=== PATIENT | female | born 1935 | race Caucasian/White ===

== ENCOUNTER → 2017-11-03 | Outpatient (CLI) | payer MEDICARE, OTHER ==
[~2017-11-03] MED LIST: ANTIVERT25 MG PO; APAP500 PO; ARTIFICIAL TEAR15 M1 OPHTHALMIC; ASPIR 8181 MG PO; ASPIRIN325 PO; ASPIRIN81 M2 PO; ATORVASTATIN CA40 MG PO; AZITHROMYCIN 2250 MG PO; AZOPT OPHTH1 %/10 M1 OP; BENADRYL ALLERG25 MG PO; BRIMONIDINE TAR1 BO1 OP; CALCIUM + VIT1 EACH; CHERATUSSIN DA480 ML; CIPRO250 M1 PO; CIPROFLOXACIN1 EACH OT; COLACE100 MG PO; COMBIGAN EYE DR10 ML OP; COZAAR 50 MG TA50 M2 PO; DOXYCYCLINE HYC50 MG PO; ENOXAPARIN40 MG/0.1 SUBQ; ERYTHROMYCIN250 MG PO; ETODOLAC500 MG PO; FISH OIL 1,0001 EAC8; FLAX OIL1000 MG PO; FLOMAX0.4 MG PO; GLUCOSAMINE HC500 MG; HEMP OIL; HERB LAX PO; KLOR-CON 1010 MEQ PO; LASIX 20 MG TAB20 MG PO; LEVAQUIN 500 M500 M1 PO; LEVAQUIN 500 M500 M2 PO; LIPITOR 20 MG T20 M1 PO; LISINOPRIL2.5 MG; LOPRESSOR25 PO; LOPRESSOR50; LOPRESSOR50 PO; MIRALAX17 GM PO; MIRALAX255 GM PO; MOBIC15 MG PO; MOM PO; MUCINEX TA600 MG/TA2 PO; NAPROSYN500 MG PO; NITROGLYCERIN0.4 MG SL; ORAPRED ODT15 MG PO; OSELB75 PO; OXYBUTYNIN 5 MG5 M2 PO; PAXIL10 MG PO; PRED FORTE 1% EY5 M1 OP; PRED-FORTE OPHTH1 M1 OP; PREDNISOLON5 MG/5 ML INTRAOCULR; PREDNISOLONE; PREDNISONE 20 M20 M1 PO; PREDNISONE 5 MG5 MG PO; PROTONIX40 M1 PO; RESTORIL15 MG PO; SIMVASTATIN40 MG PO; STOOL SOFTNER; TESSALON PERLE100 MG PO; TIMOPTIC 0.25%1 EACH OPHTHALMIC; TOPROL XL25 MG PO; TRAVATAN Z2.5 ML OPHTHALMIC; TRIMETHOPRIM /P10 M1 OP; TRUSOPT5 ML OP; ULTRAM 50MG TAB50 MG PO; VENTOLIN HFA 1818 GM INH; VITAMINC500 PO; XALATAN2.5 ML OPHTHALMIC; XARELTO15 MG PO; ZESTRIL5 MG PO; ZOCOR40 MG PO; ZOFRAN ODT4 MG PO; ZPAK PO; [UNRECOGNIZED DRUG - OTHER] OPHTHALMIC; [UNRECOGNIZED DRUG - OTHER] PO; [UNRECOGNIZED DRUG - OTHER] PO
== END ==
LOC: M.RAD 12:58
DX: R05 Cough (principal); R06.00 Dyspnea, unspecified; M19.012 Primary osteoarthritis, left shoulder; M19.011 Primary osteoarthritis, right shoulder

== ENCOUNTER → 2017-11-28 | Outpatient (CLI) | payer MEDICARE, OTHER | LOC: M.RAD 11:44 | DX: I51.7 Cardiomegaly (principal); J18.9 Pneumonia, unspecified organism ==

== ENCOUNTER → 2017-12-08 | Outpatient (CLI) | payer MEDICARE, OTHER | LOC: M.RAD 13:10 | DX: Z12.31 Encounter for screening mammogram for malignant neoplasm of breast (principal) ==

== ENCOUNTER → 2017-12-22 | Outpatient (CLI) | payer MEDICARE, OTHER ==
[2017-12-22 10:56] LABS: CHOLESTEROL 197 mg/dL (<200); HDL CHOLESTEROL 35 mg/dL (>40); LDL CHOLESTEROL 110 mg/dL (<100); SERUM ASSESSMENT Clear; TC:HDL 5.6 Ratio (Not establshd); TRIGLYCERIDE 261 mg/dL (<150); VLDL 52 mg/dL (<40)
== END ==
LOC: M.LAB 10:21
PROVIDERS: Internal Medicine Cardiovascular Disease
DX: E78.00 Pure hypercholesterolemia, unspecified (principal)

== ENCOUNTER → 2017-12-27 | Outpatient (CLI) | payer MEDICARE, OTHER ==
--- NOTE | 2017-12-27 20:08 | CARDNUC ---
[place] [address] CARDIAC NUCLEAR IMAGING REPORT Name: CECE KIM Room: [facility]#: [id number] Admission: 12/27/17 Attend Phys: Ethan Banks, Discharge: Date of : 37 Date of Service: 12/27/172006 Report #: [id number] THIS REPORT FOR: //name// APPROVED REPORT Study performed: 12/27/2017 07:45:00 Exam: Nuclear Stress Test Indication: CAD , Pre-Operative CV evaluation Patient Location: Out-Patient Stress Tech: Marcelina Hill Stress Nurse: Lala Aviles RN NM Tech:ARTURO Samaniego Ht: 5 ft 3 in Wt: 174 lbs BSA: 1.82 m2 BMI: 30.81 Medical History Medical History: CAD s/p CABG, HTN Medications: metoprolol, asa, losartan Allergies: silvio inhibitor, hydrocodone, levofloxacin Cardiac Risk Factors: Age, HTN Previous Cardiac Procedures: CABG Meds Held (24 hrs): metoprolol Stress Test Details Stress Test: Pharmacologic stress testing performed using 0.4 mg of regadenoson per 5 mL given IV over 10 seconds. Reason for pharmacologic stress test: physical limitation. HR Resting HR: 63 bpm Max Heart Rate (APMHR): 139 bpm Max HR Achieved: 86 bpm Target HR (85% APMHR): 118 bpm % of APMHR: 61 Recovery HR: 88 bpm BP Resting BP: 150/91 mmHg Max BP: 114/69 mmHg ECG Resting ECG: Sinus Rhythm, normal EKG Stress ECG: Sinus Rhythm, normal EKG ST Change: None Arrhythmia: [place] [address] CARDIAC NUCLEAR IMAGING REPORT Name: ALICJA KIMYCHerbie Williamson Room: [facility]#: [id number] Admission: 12/27/17 Attend Phys: Ethan Banks, Discharge: Date of : 37 Date of Service: 12/27/172006 Report #: [id number] Recovery ECG: Sinus Rhythm, normal EKG Recovery ST Change: None Recovery Arrhythmia: None Clinical Reason for Termination: Completed protocol Stress Symptoms: None Exercise duration: 0 min sec Exercise capacity: 1.0 METs The patient had no significant symptoms with Lexiscan infusion. Stress ECG Conclusion The baseline 12-lead electrocardiogram showed sinus rhythm without significant ST or T wave abnormality. EKGs obtained during and post Lexiscan infusion show sinus rhythm with no significant ST or T wave changes when compared to baseline. There were no stress-induced arrhythmias. NM EXAM: Myocardial Perfusion REST/STRESS Imaging Protocol: Rest Tc-99m/Stress Tc-99m 1 day Resting Data Rest SPECT myocardial perfusion imaging was performed in supine position 30 minutes following the intravenous injection of 11.0 mCi of Tc-99m Sestamibi. Time of rest injection: 0815 Time of rest imagin The images were gated to evaluate regional wall motion and calculate left ventricular ejection fraction. Administration Route: IV Pharmacologic Stress Pharmacologic stress test was performed by injecting Regadenoson 0.4 mg IV push followed by the intravenous injection of 35.6 mCi of Tc-99m Sestamibi. Time of stress injection: 0945 Time of stress imagin Administration Route: IV Gated Stress SPECT was performed 40 minutes after stress injection. The images were gated to evaluate regional wall motion and calculate left ventricular ejection fraction. Prone imaging was [place] [address] CARDIAC NUCLEAR IMAGING REPORT Name: CECE KIM Room: [facility]#: [id number] Admission: 12/27/17 Attend Phys: Ethan Banks, Discharge: Date of : 37 Date of Service: 12/27/172006 Report #: [id number] Study: Good Artifact: No artifact Study Data At rest, the left ventricular ejection fraction was 63%.. Post stress, the left ventricular ejection was 71%.. TID = 0.95. Perfusion Normal left ventricular perfusion. Wall Motion Global LV systolic function is normal. There is a septal wall motion abnormality noted consistent with prior bypass procedure. Nuclear Conclusion ECG Findings: negative for ischemia Clinical Findings: negative for ischemia Nuclear Findings: negative for ischemia Exercise Capacity: not assessed Left Ventricular Function: normal Risk Study: low Myocardial perfusion images show no defect to suggest infarct or ischemia. Left ventricular systolic function is normal. There is a septal wall motion abnormality consistent with prior bypass procedure. This is a low risk study. <Conclusion> The baseline 12-lead electrocardiogram showed sinus rhythm without significant ST or T wave abnormality. EKGs obtained during and post Lexiscan infusion show sinus rhythm with no significant ST or T wave changes when compared to baseline. There were no stress-induced arrhythmias. <ELECTRONICALLY SIGNED> By: Naun Reyes MD, FACC 12/27/172006 06 06 Naun Reyes MD, FACC /INF
== END ==
LOC: M.NUC 07:38
DX: Z01.818 Encounter for other preprocedural examination (principal); I25.10 Atherosclerotic heart disease of native coronary artery without angina pectoris; I10 Essential (primary) hypertension; Z95.1 Presence of aortocoronary bypass graft

== ENCOUNTER → 2018-01-25 | Outpatient (CLI) | payer MEDICARE, OTHER | LOC: M.MRI 10:44 | DX: S43.401A Unspecified sprain of right shoulder joint, initial encounter (principal); M19.011 Primary osteoarthritis, right shoulder; Z91.81 History of falling; X58.XXXA Exposure to other specified factors, initial encounter; Y93.89 Activity, other specified; Y92.89 Other specified places as the place of occurrence of the external cause; Y99.8 Other external cause status ==

== ENCOUNTER 2018-07-21 09:18 | Inpatient (IN) | payer MEDICARE, OTHER ==
[~2018-07-21] VITALS: Ht 152.4 cm; Wt 75.3 kg
[~2018-07-21 09:18] MED LIST changes: -ARTIFICIAL TEAR15 M1 OPHTHALMIC; -LOPRESSOR25 PO; -MIRALAX17 GM PO; -OXYBUTYNIN 5 MG5 M2 PO; -XARELTO15 MG PO
[2018-07-21 10:03] LABS: ABSOLUTE EOSINOPHILS 0.2 thou/uL (0.0-0.7); ABSOLUTE LYMPHOCYTES 1.8 thou/uL (0.8-5.3); ABSOLUTE MONOCYTES 0.3 thou/uL (0.0-1.2); ABSOLUTE NEUTROPHILS 3.6 thou/uL (1.6-8.1); BASOPHILS 0.5 %; HEMATOCRIT 42.9 % (37.0-47.0); HEMOGLOBIN 14.7 gm/dL (12.0-15.0); LYMPHOCYTES 30.1 %; MCH 33.4 pg (26.0-34.0); MCHC 34.2 g/dL (28.0-37.0); MCV 97.7 fL (80.0-100.0); MONOCYTES 5.8 %; MPV 9.1 fl. (7.2-11.1); NUCLEATED RBCS 0 /100WBC; PLATELET COUNT* 196 thou/uL (150-400); POLYS 60.6 %; RBC 4.39 mil/uL (4.20-5.00); RDW-CV 13.3 % (10.5-14.5); WBC 5.9 thou/uL (4.0-11.0)
[2018-07-21 10:12] LABS: ANION GAP 5 mmol/L (7-16); BUN 19 mg/dL (7-18); CALCIUM 9.4 mg/dL (8.5-10.1); CHLORIDE 105 mmol/L (98-107); CO2 27 mmol/L (21-32); CREATININE 0.8 mg/dL (0.6-1.3); GLUCOSE 132 mg/dL (70-99); POTASSIUM 4.1 mmol/L (3.5-5.1); SODIUM 137 mmol/L (136-145)
[2018-07-21 10:23] LABS: ALKALINE PHOSPHATASE 125 U/L (46-116); LIPASE 85 U/L (73-393); MAGNESIUM 2.1 mg/dL (1.8-2.4); NT-PRO BRAIN NAT PEPTIDE 307 pg/mL (<300); SGOT 23 U/L (15-37); SGPT 44 U/L (30-65); TOTAL BILIRUBIN 0.7 mg/dL (<0.1-1.0); TOTAL PROTEIN 7.7 g/dL (6.4-8.2); TROPONIN-I LEVEL <0.06 ng/mL (<0.06)
[2018-07-21 11:54] LABS: APTT 25.9 Seconds (25.0-31.3); PROTIME 10.4 Seconds (9.20-11.50)
[2018-07-21 14:02] VITALS: BP 124/76
[2018-07-21 14:04] VITALS: BP 164/77
--- NOTE | 2018-07-21 14:08 | EKG ---
[place] [address] ELECTROCARDIOGRAM REPORT Name: CECE KIM Room: [address] IN M.R.#: [id number] Admission: 07/21/18 Attend Phys: Alfredo Bo, Discharge: Date of : 37 Report #: [id number] THIS REPORT FOR: //name// [facility] ED Test Date: 2018-07-21 Test Time: 09:24:08 Pat Name: CECE KIM Department: Room: [facility] Gender: F Patent Attorney: SRINIVASA : 1935 Requested By: Vel Villarreal Order Number: [id number] MD: Darren Moore Measurements Intervals [place] Rate: 61 P: 7 NV: 202 QRS: -26 QRSD: 84 T: 161 QT: 391 QTc: 394 Interpretive Statements Sinus rhythm Abnormal R-wave progression, late transition LVH with secondary repolarization abnormality consider Inferior infarct, old Baseline wander in lead(s) I,aVR Compared to ECG 07/04/2016 13:10:55 Prolonged QT interval no longer present Electronically Signed On 07-21-2018 14:08:32 CDT by Darren Moore [email or web address] <ELECTRONICALLY SIGNED> By: Darren Moore MD, FACC 07/21/18 1408 0924 Darren Moore MD, FACC /EPI
--- NOTE | 2018-07-21 14:12 | EKG ---
[place] [address] ELECTROCARDIOGRAM REPORT Name: CECE KIM Room: [address] ADM IN M.R.#: [id number] Admission: 07/21/18 Attend Phys: Alfredo Bo, Discharge: Date of : 37 Report #: [id number] THIS REPORT FOR: //name// [facility] ED Test Date: 2018-07-21 Test Time: 11:38:07 Pat Name: CECE KIM Department: Room: [facility] Gender: F Gas Fitter Helper: TRISTAN : 1935 Requested By: Vel Villarreal Order Number: [id number] MD: Darren Moore Measurements Intervals [place] Rate: 61 P: 22 [place]: 201 QRS: -22 QRSD: 95 T: 98 QT: 478 QTc: 482 Interpretive Statements Sinus rhythm LVH with secondary repolarization abnormality Baseline wander in lead(s) V5 Electronically Signed On 07-21-2018 14:11:54 CDT by Darren Moore [email or web address] <ELECTRONICALLY SIGNED> By: Darren Moore MD, [facility] 07/21/18 1411 1138 1138 Darren Moore MD, FAC /EPI
[2018-07-21] MEDS ORDERED: MIRALAX17 GM PO (14:52)
[2018-07-21] MEDS ORDERED: LOPRESSOR25 PO (14:55)
[2018-07-21] MEDS ORDERED: OXYBUTYNIN 5 MG5 M2 PO (14:56)
[2018-07-21] MEDS ORDERED: PAXIL10 MG PO (14:56)
[2018-07-21] MEDS ORDERED: ARTIFICIAL TEAR15 M1 OPHTHALMIC (14:57)
[2018-07-21 15:34] VITALS: BP 110/61
[2018-07-21 20:00] VITALS: BP 133/70
[2018-07-22] VITALS (7 sets, daily range): BP systolic 97–141; BP diastolic 48–74
[2018-07-22 05:12] LABS: HEMATOCRIT 39.8 % (37.0-47.0); HEMOGLOBIN 13.7 gm/dL (12.0-15.0); MCH 33.9 pg (26.0-34.0); MCHC 34.4 g/dL (28.0-37.0); MCV 98.5 fL (80.0-100.0); MPV 9.4 fl. (7.2-11.1); RBC 4.04 mil/uL (4.20-5.00); RDW-CV 13.3 % (10.5-14.5); WBC 6.3 thou/uL (4.0-11.0)
[2018-07-22 05:32] LABS: ALBUMIN 3.4 g/dL (3.4-5.0); CALCIUM 9.1 mg/dL (8.5-10.1); CREATININE 0.7 mg/dL (0.6-1.3); MAGNESIUM 2.2 mg/dL (1.8-2.4); POTASSIUM 4.2 mmol/L (3.5-5.1); TOTAL BILIRUBIN 0.6 mg/dL (<0.1-1.0); TOTAL PROTEIN 6.3 g/dL (6.4-8.2)
[2018-07-23] VITALS: BP 117/55
[2018-07-23 04:00] VITALS: BP 107/54
[2018-07-23 04:42] LABS: HEMATOCRIT 39.4 % (37.0-47.0); HEMOGLOBIN 13.5 gm/dL (12.0-15.0); MCH 33.5 pg (26.0-34.0); MCHC 34.2 g/dL (28.0-37.0); MCV 98.1 fL (80.0-100.0); MPV 9.2 fl. (7.2-11.1); RBC 4.02 mil/uL (4.20-5.00); RDW-CV 13.3 % (10.5-14.5); WBC 5.7 thou/uL (4.0-11.0)
[2018-07-23 05:13] LABS: ALBUMIN 3.2 g/dL (3.4-5.0); CALCIUM 8.8 mg/dL (8.5-10.1); CREATININE 0.8 mg/dL (0.6-1.3); MAGNESIUM 2.1 mg/dL (1.8-2.4); POTASSIUM 4.3 mmol/L (3.5-5.1); TOTAL BILIRUBIN 0.5 mg/dL (<0.1-1.0); TOTAL PROTEIN 6.1 g/dL (6.4-8.2)
--- NOTE | 2018-07-23 11:30 | CON ---
[address] [address] CONSULTATION Name: JULIOCECE F Room: [address] IN .R.#: [id number] Admission: 07/21/18 Attend Phys: Alfredo Bo, Discharge: Date of : 37 Report #: [id number] THIS REPORT FOR: //name// CC: Darren Bo DATE OF SERVICE: 07/22/2018 REQUESTING PHYSICIAN: Dr. Bo. REASON FOR CONSULTATION: Pulmonary embolism. DISCUSSION: The patient is a nonsmoking 83-year-old woman who was admitted after being evaluated in the Emergency Department yesterday. She had developed significant chest pain, which was worse with movement and breathing several days prior to presentation. She had contacted Dr. Pascual. He had recommended she be seen in the Emergency Department. However, she had put that off. There was concern she could have a "blood clot." The pain worsened. She was then seen subsequently in the Emergency Department. She was evaluated there. She did have a CT angiogram done of her chest with a PE protocol that revealed a thrombus in the right pulmonary artery. Had some chronic scarring in the bases noted. She was started on anticoagulation therapy. She is now on the floor. She is still on O2 at 2 liters per nasal cannula. Subjectively, she is feeling somewhat better, though still having some shortness of breath and pleuritic pain. She has no prior history of known thromboembolic disease. She had stopped her aspirin several days prior to this in anticipation of Orthopedic Surgery next week. She is quite sedentary. She is legally blind. She notes she actually spends much of the day in bed. She does have caregivers that come by to help with her and her 5 days a week. She does not get any kind of regular exercise. She does note that several days prior to this acute event, her caregiver had noted an area of swelling in her left calf. Apparently, was not warm or tender. It subsequently dissipated on its own. She was initially started on high dose Lovenox. She has been changed over to Xarelto 15 mg twice a day, which was started today. She is somewhat concerned in regards to her medications that will be used due to the cost. Her is on warfarin, so she is somewhat familiar with the anticoagulants. 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 PAST MEDICAL HISTORY: Remarkable for the legal blindness due to glaucoma. No history of thromboembolic disease. [place] [address] CONSULTATION Name: CECE KIM Room: [address]#: [id number] Admission: 07/21/18 Attend Phys: Alfredo Bo, Discharge: Date of : 37 Report #: [id number] coronary artery disease. Has had [place]. She underwent coronary artery bypass grafting surgery in 2013. She has also had ureteral stones removed, polymyalgia rheumatica, hypertension, had right knee arthroscopic surgery, she has chronic back pain. HOME MEDICATIONS: P.r.n. nitroglycerin, various eyedrops, simvastatin, losartan, docusate, ascorbic acid, Flomax, p.r.n. tramadol. 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 Had worked at [employer] in [facility]. She is . Her is in his late 90s. They do have help at home 5 days a week. When she was working as an RN, her TB skin tests were all negative. REVIEW OF SYSTEMS: ROS was done. No positives as above. She has not noted any swelling in her legs or pain in her legs other than what was noted above under HPI. She has had a chronic cough over the last 3-4 years. She is not aware of anything which may have precipitated or helped it. Typically, no sputum is produced. She typically does not feel short of breath. She does have indigestion and heartburn. PPI has been recommended; however, she opts not to take any medication regularly unless she has to. She has no difficulty swallowing. She is not aware of any fevers at home. She did have some nausea and vomiting earlier this morning. Typically, has not had any issues. She has had shoulder discomfort and was scheduled to have actually shoulder surgery in early July. PHYSICAL EXAMINATION: GENERAL APPEARANCE: The patient is a woman who looks stated age. She is alert, cooperative. Has O2 running via nasal cannula. When we do move her around, she does look uncomfortable, but no acute distress. HEENT: Head is normocephalic. Sclerae are nonicteric. Mucous membranes are moist. NECK: Negative for adenopathy. No JVD is noted. HEART: Regular rate. No S3 is heard. LUNGS: Sounds appear clear. However, she is doing some splinting. No pleural rub is heard. ABDOMEN: Soft, without appreciable hepatosplenomegaly. No guarding or rebound tenderness. Arthritic changes of her hands, but no clubbing. EXTREMITIES: Lower extremities are negative for any significant edema. No calf tenderness. Just a few faint varicosities are noted. SKIN: Warm and dry. NEUROLOGIC: She is alert and oriented x 3. LABORATORY AND X-RAY FINDINGS: Venous Dopplers were negative for DVT. Pulmonary embolism was noted in the right main pulmonary artery. She has some atelectatic changes seen or infiltrate in both lung bases bilaterally. No pleural effusions. On her chemistry profile, BUN is 20, creatinine 0.7, [facility] [address] [place] [address] CONSULTATION Name: CECE KIM Room: [address] IN [facility].#: [id number] Admission: 07/21/18 Attend Phys: Alfredo Bo, Discharge: Date of : 37 Report #: [id number] potassium is 4.2. D-dimer was elevated. Baseline Coag studies were unremarkable. White blood cell count 6300, hemoglobin 13.7, hematocrit of 29.8, platelets are normal. IMPRESSION: 1. Pulmonary embolism, most likely from deep vein thrombosis. Though, Dopplers were negative, she does note earlier in the week there was an area of swelling in her left leg, which has since resolved. Risk factors include she is extremely sedentary. Unfortunately, this also preclude her from having shoulder surgery the first part of July as originally scheduled. 2. History of coronary artery disease. 3. Chronic cough. It is possible she could have some underlying obstructive lung disease such as asthma. Also, suspect it could be related to gastroesophageal reflux disease. She has not been interested in taking a PPI on a regular basis. 4. Legal blindness secondary to glaucoma. 5. Mild anemia. RECOMMENDATIONS: 1. Agree with anticoagulation therapy. She currently is on Xarelto. Hopefully, this would be a viable option for her. She is concerned in regards to the cost. Case management is assisting with that. 2. Also, continue to monitor carefully. Given her blindness, I was concerned about the possibility of falls, risk for bleeding. 3. Anticipate, she will need a minimum of 3-6 months of anticoagulation therapy and reevaluate at that time in regards to ongoing risks. Would hate to commit an elderly woman to lifelong anticoagulation therapy. <ELECTRONICALLY SIGNED> By: Kat Guerra MD 07/23/18 1130 1408 [id number] Guerra MD /nt
[2018-07-23 11:47] VITALS: BP 94/53
[2018-07-23 15:37] VITALS: BP 100/52
[2018-07-23 20:00] VITALS: BP 135/70
[2018-07-23 23:54] VITALS: BP 123/59
[2018-07-24 04:12] VITALS: BP 135/67
[2018-07-24 08:00] VITALS: BP 146/79
[2018-07-24] MEDS ORDERED: XARELTO15 MG PO (11:30)
[2018-07-24 12:00] VITALS: BP 128/60
--- NOTE | 2018-07-24 13:24 | 2DMMODE ---
[place] [address] 2 D/M-MODE ECHOCARDIOGRAM Name: CECE KIM Room: [address] IN [facility]#: [id number] Admission: 07/21/18 Attend Phys: Alfredo Grimm Discharge: Date of : 37 Date of Service: 07/24/18 1323 Report #: [id number] THIS REPORT FOR: //name// APPROVED REPORT Study performed: 07/24/2018 11:17:15 EXAM: Comprehensive 2D, Doppler, and color-flow Echocardiogram Patient Location: In-Patient Room #: [facility] Status: routine BSA: 1.79 HR: 55 bpm BP: 135/67 mmHg Rhythm: NSR Other Information Study Quality: Good Indications Pulmonary Embolism 2D Dimensions IVSd: 11.40 (7-11mm) LVOT Diam: 19.40 (18-24mm) LVDd: 48.57 mm PWd: 8.35 (7-11mm) Ascending Ao: 33.93 (22-36mm) LVDs: 28.08 (25-40mm) Aortic Root: 30.81 mm Volumes Left Atrial Volume (Systole) LA ESV Index: 22.80 mL/m2 Aortic Valve AoV Peak Ton.: 0.95 m/s AO Peak Gr.: 3.57 mmHg LVOT Max P.48 mmHg AO Mean Gr.: 2.10 mmHg LVOT Mean P.22 mmHg LVOT Max V: 0.79 m/s AO V2 VTI: 21.10 cm LVOT Mean V: 0.51 m/s ANNALISA (VTI): 2.47 cm2 LVOT V1 VTI: 17.62 cm Mitral Valve E/A Ratio: 0.74 MV Decel. Time: 277.64 ms MV E Max Ton.: 0.54 m/[place] [address] 2 D/M-MODE ECHOCARDIOGRAM Name: CECE KIM Room: [address] IN ..#: [id number] Admission: 07/21/18 Attend Phys: Alfredo Grimm Discharge: Date of : 37 Date of Service: 07/24/18 1323 Report #: [id number] MV PHT: 80.52 ms MVA (PHT): 2.73 cm2 TDI E/Lateral E': 6.75 E/Medial E': 9.00 Medial E' Ton.: 0.06 m/s Lateral E' Ton.: 0.08 m/s Pulmonary Valve PV Peak Ton.: 0.65 m/s PV Peak Gr.: 1.70 mmHg Tricuspid Valve RAP Estimate: 5.00 mmHg TR Peak Gr.: 27.22 mmHg RVSP: 32.00 mmHg PA Pressure: 32.00 mmHg Left Ventricle The left ventricle is normal size. There is normal LV segmental wall motion. There is normal left ventricular wall thickness. Left ventricular systolic function is normal. The left ventricular ejection fraction is within the normal range. LVEF is 55-60%. Grade I - abnormal relaxation pattern. Right Ventricle The right ventricle is normal size. The right ventricular systolic function is normal. Atria The left atrium size is normal. The right atrium size is normal. Aortic Valve Mild aortic valve sclerosis. Trace aortic regurgitation. There is no aortic valvular stenosis. Mitral Valve The mitral valve is normal in structure. Trace mitral regurgitation. No evidence of mitral valve stenosis. Tricuspid Valve The tricuspid valve is normal in structure. Moderate tricuspid regurgitation. Mild pulmonary hypertension. Pulmonic Valve The pulmonary valve is normal in structure. Mild pulmonic [place] [address] 2 D/M-MODE ECHOCARDIOGRAM Name: ECCE KIM Room: [address]#: [id number] Admission: 07/21/18 Attend Phys: Alfredo Grimm Discharge: Date of : 37 Date of Service: 07/24/18 1323 Report #: [id number] Great Vessels The aortic root is normal in size. IVC is normal in size and collapses >50% with inspiration. Pericardium There is no pericardial effusion. <Conclusion> The left ventricle is normal size. There is normal left ventricular wall thickness. Left ventricular systolic function is normal. The left ventricular ejection fraction is within the normal range. LVEF is 55-60%. Grade I - abnormal relaxation pattern. The right ventricle is normal size. The left atrium size is normal. Mild aortic valve sclerosis. There is no aortic valvular stenosis. Trace aortic regurgitation. The mitral valve is normal in structure. The tricuspid valve is normal in structure. IVC is normal in size and collapses >50% with inspiration. There is no pericardial effusion. There is normal LV segmental wall motion. <ELECTRONICALLY SIGNED> By: Yovany Cullen MD, FACC 07/24/18 1323 22 22 Yovany Cullen MD, FACC /INF
== END 2018-07-24 15:06 | disposition home or self-care (01) | DRG 176 ==
LOC: M.ERS 09:18 → M.TBA-ER 11:43 → M.2W 11:43
PROVIDERS: Emergency Medicine Emergency Medical Services; ADMIT Family Medicine
DX: I26.99 Other pulmonary embolism without acute cor pulmonale (principal); J98.11 Atelectasis; I10 Essential (primary) hypertension; H54.8 Legal blindness, as defined in USA; G89.29 Other chronic pain; M54.9 Dorsalgia, unspecified; I25.10 Atherosclerotic heart disease of native coronary artery without angina pectoris; D64.9 Anemia, unspecified; H40.9 Unspecified glaucoma; Z98.42 Cataract extraction status, left eye; Z98.41 Cataract extraction status, right eye; Z95.1 Presence of aortocoronary bypass graft; Z87.442 Personal history of urinary calculi; Z88.6 Allergy status to analgesic agent; Z79.01 Long term (current) use of anticoagulants; Z82.49 Family history of ischemic heart disease and other diseases of the circulatory system; Z83.49 Family history of other endocrine, nutritional and metabolic diseases; Z79.82 Long term (current) use of aspirin; Z79.899 Other long term (current) drug therapy

== ENCOUNTER 2018-08-04 11:39 | Emergency (ER) | payer MEDICARE, OTHER ==
[~2018-08-04] VITALS: Ht 160 cm; Wt 76.2 kg
[~2018-08-04 11:39] MED LIST changes: +ARTIFICIAL TEAR15 M1 OPHTHALMIC; +LOPRESSOR25 PO; +MIRALAX17 GM PO; +OXYBUTYNIN 5 MG5 M2 PO; +XARELTO15 MG PO
[2018-08-04 12:10] LABS: ABSOLUTE EOSINOPHILS 0.1 thou/uL (0.0-0.7); ABSOLUTE LYMPHOCYTES 2.2 thou/uL (0.8-5.3); ABSOLUTE MONOCYTES 0.4 thou/uL (0.0-1.2); ABSOLUTE NEUTROPHILS 2.9 thou/uL (1.6-8.1); BASOPHILS 0.8 %; EOSINOPHILS 2.2 %; HEMATOCRIT 42.3 % (37.0-47.0); HEMOGLOBIN 14.2 gm/dL (12.0-15.0); LYMPHOCYTES 38.6 %; MCH 32.9 pg (26.0-34.0); MCHC 33.6 g/dL (28.0-37.0); MCV 97.9 fL (80.0-100.0); MONOCYTES 7.4 %; MPV 8.7 fl. (7.2-11.1); NUCLEATED RBCS 0 /100WBC; PLATELET COUNT* 243 thou/uL (150-400); RBC 4.32 mil/uL (4.20-5.00); RDW-CV 13.1 % (10.5-14.5); WBC 5.7 thou/uL (4.0-11.0)
[2018-08-04 12:22] LABS: CALCIUM 9.6 mg/dL (8.5-10.1); CREATININE 0.8 mg/dL (0.6-1.3); POTASSIUM 4.8 mmol/L (3.5-5.1)
[2018-08-04 12:26] LABS: ALBUMIN 3.7 g/dL (3.4-5.0); MAGNESIUM 2.3 mg/dL (1.8-2.4); TOTAL BILIRUBIN 0.4 mg/dL (<0.1-1.0); TOTAL PROTEIN 6.8 g/dL (6.4-8.2)
[2018-08-04 14:36] VITALS: BP 152/79
--- NOTE | 2018-08-04 17:09 | EKG ---
[place] [address] ELECTROCARDIOGRAM REPORT Name: CECE KIM Teri Room: [facility]#: [id number] Admission: 08/04/18 Attend Phys: Discharge: Date of : 37 Report #: [id number] THIS REPORT FOR: //name// [facility] ED Test Date: 2018-08-04 Test Time: 11:45:44 Pat Name: CECE KIM Department: Room: Gender: F Sample Shoe Inspector And Reworker: Lourdes LIN : 1935 Requested By: Vel Villarreal Order Number: [id number] MD: Darren Moore Measurements Intervals [place] Rate: 59 P: 29 SC: 193 QRS: -30 QRSD: 92 T: 87 QT: 470 QTc: 466 Interpretive Statements Sinus rhythm LVH with secondary repolarization abnormality Inferior infarct, old Baseline wander in lead(s) V1 Compared to ECG 07/21/2018 11:38:07 no change Electronically Signed On 08-04-2018 17:09:08 ECOLOGIST by Darren Moore [email or web address] <ELECTRONICALLY SIGNED> By: Darren Moore MD, [facility] 08/04/18 1709 1145 1145 Darren Moore MD, [facility] /EPI
--- NOTE | 2018-08-06 10:09 | EKG ---
[place] [address] ELECTROCARDIOGRAM REPORT Name: CECE KIM Teri Room: [facility]#: [id number] Admission: 08/04/18 Attend Phys: Discharge: 08/04/18 Date of : 37 Report #: [id number] THIS REPORT FOR: //name// [facility] ED Test Date: 2018-08-04 Test Time: 14:06:23 Pat Name: CECE KIM Department: Room: Gender: F Jack Spinner: Lourdes LIN : 1935 Requested By: Vel Villarreal Order Number: [id number] MD: Naun Reyes Measurements Intervals [place] Rate: 51 P: 10 [place]: 201 QRS: -26 QRSD: 93 T: 90 QT: 488 QTc: 450 Interpretive Statements Sinus rhythm LVH with secondary repolarization abnormality Inferior infarct, old Baseline wander in lead(s) I,II,aVR Compared to ECG 08/04/2018 11:45:44 No significant changes Electronically Signed On 08-06-2018 10:09:05 GREY ROLL WORKER by Naun Reyes [email or web address] <ELECTRONICALLY SIGNED> By: Naun Reyes MD, FACC 08/06/18 1009 1406 1406 Naun Reyes MD, FACC /EPI
== END 2018-08-04 14:37 | disposition home or self-care (01) ==
LOC: M.ERS 11:39
PROVIDERS: Emergency Medicine Emergency Medical Services
DX: M25.512 Pain in left shoulder (principal); I10 Essential (primary) hypertension; G89.29 Other chronic pain; M54.9 Dorsalgia, unspecified; Z87.442 Personal history of urinary calculi; Z95.1 Presence of aortocoronary bypass graft

== ENCOUNTER → 2018-12-25 | Outpatient (CLI) | payer MEDICARE, OTHER ==
[2018-12-25 09:24] LABS: CREATININE 0.7 mg/dL (0.6-1.3)
== END ==
LOC: M.LAB 08:30 → M.CT 09:00
PROVIDERS: Internal Medicine
DX: I26.09 Other pulmonary embolism with acute cor pulmonale (principal); J98.11 Atelectasis; J98.4 Other disorders of lung; I70.0 Atherosclerosis of aorta; K76.0 Fatty (change of) liver, not elsewhere classified; Z79.899 Other long term (current) drug therapy; Z98.890 Other specified postprocedural states

== ENCOUNTER 2019-01-05 10:59 | Emergency (ER) | payer MEDICARE, OTHER ==
[~2019-01-05] VITALS: Ht 160 cm; Wt 78.0 kg
[2019-01-05 12:05] LABS: ABSOLUTE EOSINOPHILS 0.2 thou/uL (0.0-0.7); ABSOLUTE MONOCYTES 0.4 thou/uL (0.0-1.2); ABSOLUTE NEUTROPHILS 2.8 thou/uL (1.6-8.1); BASOPHILS 0.6 %; EOSINOPHILS 3.2 %; HEMATOCRIT 43.1 % (37.0-47.0); HEMOGLOBIN 14.9 gm/dL (12.0-15.0); LYMPHOCYTES 37.3 %; MCH 33.3 pg (26.0-34.0); MCHC 34.6 g/dL (28.0-37.0); MCV 96.4 fL (80.0-100.0); MONOCYTES 7.6 %; NUCLEATED RBCS 0 /100WBC; PLATELET COUNT* 197 thou/uL (150-400); POLYS 51.3 %; RBC 4.46 mil/uL (4.20-5.00); RDW-CV 12.8 % (10.5-14.5); WBC 5.4 thou/uL (4.0-11.0)
[2019-01-05 12:16] LABS: APTT 29.2 Seconds (25.0-31.3); INR 1.1; PROTIME 11.7 Seconds (9.20-11.50)
[2019-01-05 12:23] LABS: ANION GAP 6 mmol/L (7-16); BUN 24 mg/dL (7-18); CALCIUM 9.5 mg/dL (8.5-10.1); CHLORIDE 108 mmol/L (98-107); CO2 27 mmol/L (21-32); CREATININE 0.8 mg/dL (0.6-1.3); GLUCOSE 148 mg/dL (70-99); POTASSIUM 4.8 mmol/L (3.5-5.1); SODIUM 141 mmol/L (136-145); TROPONIN-I LEVEL <0.06 ng/mL (<0.06)
[2019-01-05 12:25] LABS: ALBUMIN 3.7 g/dL (3.4-5.0); ALKALINE PHOSPHATASE 106 U/L (46-116); NT-PRO BRAIN NAT PEPTIDE 245 pg/mL (<300); SGOT 20 U/L (15-37); SGPT 41 U/L (30-65); TOTAL BILIRUBIN 0.6 mg/dL (<0.1-1.0)
[2019-01-05 14:04] VITALS: BP 151/76
--- NOTE | 2019-01-05 15:17 | EKG ---
[place] [address] ELECTROCARDIOGRAM REPORT Name: CECE KIM Teri Room: [facility]#: [id number] Admission: 01/05/19 Attend Phys: Discharge: 01/05/19 Date of : 37 Report #: [id number] THIS REPORT FOR: //name// [facility] ED Test Date: 2019-01-05 Test Time: 11:48:15 Pat Name: CECE KIM Department: Room: Gender: F Sonoscope Operator: Lourdes LIN : 1935 Requested By: Brea Lal Order Number: [id number] MD: Yovany Cullen Measurements Intervals [place] Rate: 55 P: 22 [place]: 206 QRS: -33 QRSD: 92 T: 194 QT: 478 QTc: 458 Interpretive Statements Sinus rhythm LVH with secondary repolarization abnormality Compared to ECG 08/04/2018 14:06:23 Myocardial infarct finding no longer present Electronically Signed On 01-05-2019 15:17:38 CDT by Yovany Cullen [email or web address] <ELECTRONICALLY SIGNED> By: Yovany Cullen MD, [facility] 01/05/19 1517 1148 1148 Yovany Cullen MD, [facility] /EPI
== END 2019-01-05 14:05 | disposition home or self-care (01) ==
LOC: M.ERS 10:59
PROVIDERS: Nurse Practitioner Family
DX: N64.4 Mastodynia (principal); R06.00 Dyspnea, unspecified; R07.89 Other chest pain; I10 Essential (primary) hypertension; G89.29 Other chronic pain; M54.9 Dorsalgia, unspecified; Z95.1 Presence of aortocoronary bypass graft; Z87.442 Personal history of urinary calculi

== ENCOUNTER 2019-01-07 11:03 | Emergency (ER) | payer MEDICARE, OTHER ==
[~2019-01-07] VITALS: Ht 160 cm; Wt 78.0 kg
[2019-01-07 12:42] VITALS: BP 137/71
== END 2019-01-07 12:42 | disposition home or self-care (01) ==
LOC: M.ERS 11:03
DX: S80.01XA Contusion of right knee, initial encounter (principal); S80.02XA Contusion of left knee, initial encounter; S40.011A Contusion of right shoulder, initial encounter; I10 Essential (primary) hypertension; M54.9 Dorsalgia, unspecified; G89.29 Other chronic pain; Z87.442 Personal history of urinary calculi; W01.0XXA Fall on same level from slipping, tripping and stumbling without subsequent striking against object, initial encounter; Y92.89 Other specified places as the place of occurrence of the external cause; Y93.01 Activity, walking, marching and hiking; Y99.8 Other external cause status

== ENCOUNTER → 2019-03-06 | Outpatient (CLI) | payer MEDICARE, OTHER ==
[2019-03-07 13:07] LABS: GLYCOHEMOGLOBIN (HGB A1C) 5.9 % (4.8-5.6)
== END ==
LOC: M.LAB 10:15
PROVIDERS: Internal Medicine
DX: I25.10 Atherosclerotic heart disease of native coronary artery without angina pectoris (principal); I10 Essential (primary) hypertension; L98.9 Disorder of the skin and subcutaneous tissue, unspecified; M19.90 Unspecified osteoarthritis, unspecified site; R10.13 Epigastric pain; E78.00 Pure hypercholesterolemia, unspecified; R05 Cough

== ENCOUNTER 2019-10-05 11:15 | Inpatient (IN) | payer MEDICARE, OTHER ==
[~2019-10-05] VITALS: Ht 152.4 cm; Wt 77.1 kg
--- NOTE | ~2019-10-05 | CON ---
[address] [address] CONSULTATION Name: CECE KIM Room: [address] IN .R.#: [id number] Admission: 10/05/19 Attend Phys: Amanda Childs Discharge: Date of : 37 Report #: [id number] THIS REPORT FOR: //name// CC: Darren Caraballo HISTORY OF PRESENT ILLNESS: This is a pleasant 84-year-old female. She has a past medical history significant for gastroesophageal reflux disease, hypertension, hyperlipidemia, coronary artery disease, PE, who is presenting for evaluation of constipation. The patient reports that she usually has some difficulty passing stool manifest with excessive straining and she had not been able to pass a bowel movement for 3 days, which prompted her hospital visit. The patient reports significant pain and irritation while passing stool. She is legally blind; therefore, cannot tell if she has been passing blood in her stool. She denies any nausea, vomiting, diarrhea, weight loss or other alarm symptoms. The patient was given lactulose, enema, Dulcolax suppository and she has had a few bowel movements since her hospitalization. PAST MEDICAL HISTORY: Hypertension, hyperlipidemia, coronary artery disease, PE. 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 SOCIAL HISTORY: The patient denies smoking, alcohol or recreational drug use. FAMILY HISTORY: Not relevant at this time. REVIEW OF SYSTEMS: A comprehensive 10-point review of systems is negative except for what was mentioned in the HPI. PHYSICAL EXAMINATION: VITAL SIGNS: Temperature 37.6, pulse rate 102, respirations 16, blood pressure 153/78, pulse ox 92% on room air. GENERAL: The patient is alert, awake, oriented x 3. HEENT: Mucous membranes are moist. There is no congestion. LUNGS: Clear to auscultation bilaterally. CARDIOVASCULAR: Rate and rhythm regular, S1, S2 present. ABDOMEN: Soft. There is no distention, guarding or rigidity. EXTREMITIES: Warm, well perfused. There is no edema. SKIN: Warm and dry. LABORATORY DATA: Hemoglobin 14.2, hematocrit 41.3, WBC count 11.7, platelet count 225. Sodium 141, potassium 4.1, chloride 105, bicarbonate 24, BUN 22, creatinine 1.1, total bilirubin 0.6, AST 19, ALT 32, alkaline phosphatase 139, lipase 52. [place] [address] CONSULTATION Name: CECE KIM Room: [address]#: [id number] Admission: 10/05/19 Attend Phys: Amanda Chidls Discharge: Date of : 37 Report #: [id number] IMAGING: CT abdomen and pelvis, large amount of retained stool in the colon, especially in the rectum and thickening of the perirectal and soft tissues suggesting proctitis. Multiple small pancreatic cysts, possibility of cystic neoplasm cannot be ruled out. ASSESSMENT AND PLAN: Pleasant 84-year-old female with history outlined above, presenting for constipation. I have suggested that she should start taking Metamucil daily to alleviate symptoms of constipation. The patient's last colonoscopy was performed in [address] Pascual and it was normal; therefore, repeat colonoscopy is not recommended at this time. She does have pancreatic cyst for which she will need outpatient EUS and this will be set up by my office. Advance her diet to heart healthy diet and if she is able to tolerate, it is okay to discharge the patient. By: [id number] Oneil MD /nt
[2019-10-05 11:36] VITALS: BP 127/67
[2019-10-05 12:13] LABS: HEMATOCRIT 41.3 % (37.0-47.0); HEMOGLOBIN 14.2 gm/dL (12.0-15.0); MCH 32.9 pg (26.0-34.0); MCHC 34.3 g/dL (28.0-37.0); MCV 95.9 fL (80.0-100.0); MPV 8.7 fl. (7.2-11.1); NUCLEATED RBCS 0 /100WBC; PLATELET COUNT* 225 thou/uL (150-400); RDW-CV 13.5 % (10.5-14.5); WBC 11.7 thou/uL (4.0-11.0)
[2019-10-05 12:26] LABS: CALCIUM 10.2 mg/dL (8.5-10.1); CREATININE 1.1 mg/dL (0.6-1.3); POTASSIUM 4.1 mmol/L (3.5-5.1)
[2019-10-05 12:31] LABS: ALBUMIN 4.1 g/dL (3.4-5.0); TOTAL BILIRUBIN 0.6 mg/dL (<0.1-1.0); TOTAL PROTEIN 7.3 g/dL (6.4-8.2)
[2019-10-05 12:36] LABS: ABSOLUTE EOSINOPHILS 0.1 thou/uL (0.0-0.7); ABSOLUTE LYMPHOCYTES 0.4 thou/uL (0.8-5.3); ABSOLUTE MONOCYTES 0.4 thou/uL (0.0-1.2); ABSOLUTE NEUTROPHILS 10.9 thou/uL (1.6-8.1); PLATELET ESTIMATE ADEQUATE
[2019-10-05 13:45] LABS: URINE BILIRUBIN NEGATIVE (Negative); URINE BLOOD NEGATIVE (Negative); URINE CLARITY CLEAR; URINE COLOR YELLOW; URINE GLUCOSE-RANDOM NEGATIVE (Negative); URINE KETONES NEGATIVE (Negative); URINE LEUKOCYTES-REFLEX NEGATIVE (Negative); URINE NITRITE-REFLEX NEGATIVE (Negative); URINE PROTEIN NEGATIVE (Negative); URINE UROBILINOGEN 0.2 E.U./dl (0.2-1.0)
[2019-10-05 15:49] VITALS: BP 147/83
--- NOTE | 2019-10-05 16:19 | EKG ---
[place] [address] ELECTROCARDIOGRAM REPORT Name: CECE KIM Room: [place] [address] ADM IN M.R.#: [id number] Admission: 10/05/19 Attend Phys: Amanda Childs Discharge: Date of : 37 Report #: [id number] THIS REPORT FOR: //name// [facility] ED Test Date: 2019-10-05 Test Time: 11:51:33 Pat Name: CECE KIM Department: Room: [facility] Gender: F Laminator: : 1935 Requested By: Jaime House Order Number: [id number] MD: Darren Moore Measurements Intervals [place] Rate: 92 P: 13 NE: 169 QRS: -29 QRSD: 90 T: 61 QT: 375 QTc: 464 Interpretive Statements Sinus rhythm Inferior infarct, old nonspecific st changes Compared to ECG 01/05/2019 11:48:15 Left ventricular hypertrophy no longer present Electronically Signed On 10-05-2019 16:18:39 PETROLEUM GEOLOGIST by Darren Moore [email or web address] <ELECTRONICALLY SIGNED> By: Darren Moore MD, FAC 10/05/19 1618 1151 1151 Darren Moore MD, [facility] /EPI
--- NOTE | 2019-10-05 19:00 | NUR ---
PATIENT ADMITTED TO RM 112 FROM ER FOR RECTAL PAIN AND CONSTIPATION. POC REVIEWED W/ PATIENT, PATIENT STATES VERBALY OF UNDERSTANDING. PATIENT VERBALIZES SHE WISHES TO BE DNR. PATIENT VERBALIZES PERSONAL FRUSTRATIONS WITH ISSUES RELATING TO HER . UP TO BSC, PROD SM AMT OF RACHANA STARK. CURRENTLY RESTING IN BED TO RT SIDE. CALL LIGHT IN REACH. PATIENT ORIENTED TO TRAY AND WHERE WATER WAS LOCATED BY TOUCH. PATIENT DENIES OTHER NEEDS AT THIS TIME. ~TJRN
[2019-10-05 20:34] VITALS: BP 58/30
[2019-10-05 20:56] VITALS: BP 153/78
--- NOTE | 2019-10-06 05:34 | NUR ---
PATIENT ABLE TO GET ONTO COMMODE, HAD SMALL HARD BM BEGINNING OF SHIFT. REPORTS PAIN AND PRESSURE RECTAL AREA. APPLIED LIDOCAINE TO HEMORRHOIDS FOR PAIN RELIEF. RECEIVED SEVERAL DOSES OF LACTULOSE TO PROMOTE BOWEL MOVEMENT. GI CONSULTED FOR HEMORRHOIDS, USE TOPICAL CREAM AND KEEP IV CIPRO AND FLAGYL. WILL CONTINUE PLAN OF CARE.
[2019-10-06 08:00] VITALS: BP 163/92
[2019-10-06] MEDS ORDERED: MIRALAX119 GM PO (14:44)
[2019-10-06] MEDS ORDERED: SENOKOTXTRA17.2 MG PO (14:44)
[2019-10-06 14:46] LABS: ABSOLUTE EOSINOPHILS 0.1 thou/uL (0.0-0.7); ABSOLUTE LYMPHOCYTES 1.2 thou/uL (0.8-5.3); ABSOLUTE MONOCYTES 0.5 thou/uL (0.0-1.2); ABSOLUTE NEUTROPHILS 6.2 thou/uL (1.6-8.1); BASOPHILS 0.5 %; HEMATOCRIT 38.8 % (37.0-47.0); HEMOGLOBIN 13.4 gm/dL (12.0-15.0); LYMPHOCYTES 15.4 %; MCH 33.1 pg (26.0-34.0); MCHC 34.6 g/dL (28.0-37.0); MCV 95.6 fL (80.0-100.0); MONOCYTES 6.3 %; MPV 8.5 fl. (7.2-11.1); NUCLEATED RBCS 0 /100WBC; PLATELET COUNT* 208 thou/uL (150-400); POLYS 76.8 %; RBC 4.06 mil/uL (4.20-5.00); RDW-CV 13.7 % (10.5-14.5); WBC 8.1 thou/uL (4.0-11.0)
[2019-10-06] MEDS ORDERED: CIPRO250 M2 PO (14:48)
[2019-10-06] MEDS ORDERED: CULTURELLE KID1 EAC1 PO (14:48)
[2019-10-06] MEDS ORDERED: FLAGYL500 M1 PO (14:48)
[2019-10-06] MEDS ORDERED: LIDOCAINE35.44 GM TOP (14:51)
[2019-10-06] MEDS ORDERED: HYDROCORTISONE30 G9 TOP (14:51)
[2019-10-06 15:03] LABS: ALBUMIN 3.7 g/dL (3.4-5.0); CALCIUM 8.9 mg/dL (8.5-10.1); CREATININE 0.9 mg/dL (0.6-1.3); POTASSIUM 3.6 mmol/L (3.5-5.1); TOTAL BILIRUBIN 0.8 mg/dL (<0.1-1.0); TOTAL PROTEIN 7.3 g/dL (6.4-8.2)
[2019-10-06 16:30] VITALS: BP 155/90
--- NOTE | 2019-10-06 18:59 | NUR ---
PATIENT ALERT AND ORIENTED X 4. VITAL SIGNS STABLE ON ROOM AIR. UP WITH ASSIST OF ONE TO THE BEDSIDE COMODE. PATIENT DISCONTINUED OWN IV AND REFUSING A NEW ONE. DENIES PAIN AND NAUSEA AT THIS TIME. PATIENT WANTS TO GO HOME, HOWEVER, DR. CHACON FELT IT WAS IN THE PATIENT'S BEST SAFETY TO STAY ANOTHER NIGHT. NO ONE AVAILABLE TO PICK PATIENT UP TODAY. PATIENT REQUESTED TO SPEAK WITH THE ASSISTANT LIBRARIAN. ASSISTANT LIBRARIAN WAS CONTACTED AND NOTIFIED OF SITUATION. FALL PRECAUTIONS IN PLACE AND BED ALARM ON. HOURLY ROUNDS MAINTAINED THROUGHOUT THE SHIFT. CALL LIGHT WITHIN REACH. NURSING WILL CONTINUE TO MONITOR.
[2019-10-07] VITALS: BP 153/99
--- NOTE | 2019-10-07 06:53 | NUR ---
PATIENT HAS SLEPT DURING MOST OF THE NIGHT. VSS ON RA. PATIENT REFUSED ALL NIGHT TIME MEDICATIONS AND REFUSED NEW IV TO BE INSERTED. PATIENT AGITATED THAT SHE IS STILL HERE. PATIENT INSTRUCTED TO USE CALL LIGHT WHEN NEEDING ASSISTANCE. HOURLY ROUNDS MADE. WILL CONTINUE WITH PLAN OF CARE AND NURSING TO MONITOR.
[2019-10-07 08:00] VITALS: BP 152/80
--- NOTE | 2019-10-07 09:03 | NUR ---
PATIENT REFUSING ALL MORNING MEDICATION AND IV ACCESS AT THIS TIME. EDUCATED ON THE IMPORTANCE OF MEDICATION AND IV ACCESS. CALL LIGHT WITHIN REACH. WILL CONTINUE TO MONITOR.
--- NOTE | 2019-10-07 10:17 | NUR ---
PATIENT REQUESTED PO AND TOPICAL MEDICATIONS. PO AND TOPICAL MEDICATIONS GIVEN TO PATIENT THIS AM PER NOV.
[2019-10-07] MEDS ORDERED: FIBER LAX625 MG PO (13:06)
[2019-10-07 15:14] VITALS: BP 152/80
[2019-10-07 16:00] VITALS: BP 177/86
--- NOTE | 2019-10-07 18:20 | NUR ---
PATIENT DISCHARGED FROM UNIT AT 181. ALERT AND ORIENTED X 4. VITAL SIGNS STABLE ON ROOM AIR. AFEBRILE. DENIES PAIN AND NAUSEA AT THIS TIME. WENT OVER DISCHARGE INSTRUCTIONS, MEDICATION INFORMATION, AND SCRIPTS WITH PATIENT AND GAVE TO PATIENT. LEFT WITH ALL BELONGINGS. PATIENT LEFT WITH NEIGHBOR VIA CAR.
[2019-10-07 18:22] VITALS: BP 152/80
== END 2019-10-07 18:15 | disposition home or self-care (01) | DRG 394 ==
LOC: M.ERS 11:15 → M.TBA-ER 15:04 → M.ORTHSURG 15:04
PROVIDERS: Physician Assistant; ADMIT Family Medicine
PROC: 0DCP8ZZ Extirpation of Matter from Rectum, Via Natural or Artificial Opening Endoscopic (ICD-10-PCS; principal; 2019-10-05)
DX: K64.4 Residual hemorrhoidal skin tags (principal); R65.10 Systemic inflammatory response syndrome (SIRS) of non-infectious origin without acute organ dysfunction; M35.3 Polymyalgia rheumatica; I10 Essential (primary) hypertension; H54.8 Legal blindness, as defined in USA; G89.29 Other chronic pain; M54.9 Dorsalgia, unspecified; K59.09 Other constipation; F32.9 Major depressive disorder, single episode, unspecified; Z96.659 Presence of unspecified artificial knee joint; K21.9 Gastro-esophageal reflux disease without esophagitis; E78.5 Hyperlipidemia, unspecified; I25.10 Atherosclerotic heart disease of native coronary artery without angina pectoris; Z95.1 Presence of aortocoronary bypass graft; Z87.442 Personal history of urinary calculi; Z79.899 Other long term (current) drug therapy; Z79.82 Long term (current) use of aspirin; Z86.711 Personal history of pulmonary embolism; Z98.41 Cataract extraction status, right eye; Z98.42 Cataract extraction status, left eye; Z82.49 Family history of ischemic heart disease and other diseases of the circulatory system

== ENCOUNTER → 2020-03-12 | Outpatient (CLI) | payer MEDICARE, OTHER ==
[~2020-03-12] MED LIST changes: +CIPRO250 M2 PO; +CULTURELLE KID1 EAC1 PO; +FIBER LAX625 MG PO; +FLAGYL500 M1 PO; +HYDROCORTISONE30 G9 TOP; +LIDOCAINE35.44 GM TOP; +MIRALAX119 GM PO; +SENOKOTXTRA17.2 MG PO
== END ==
LOC: M.MRI 03-10 11:11
PROVIDERS: ATTEND Internal Medicine
DX: J84.10 Pulmonary fibrosis, unspecified (principal); I11.9 Hypertensive heart disease without heart failure; E78.00 Pure hypercholesterolemia, unspecified; F41.9 Anxiety disorder, unspecified; K86.2 Cyst of pancreas; J98.11 Atelectasis; I70.0 Atherosclerosis of aorta; K76.0 Fatty (change of) liver, not elsewhere classified; R16.1 Splenomegaly, not elsewhere classified; J98.4 Other disorders of lung; K76.89 Other specified diseases of liver; N28.1 Cyst of kidney, acquired

== ENCOUNTER 2020-06-22 15:40 | Emergency (ER) | payer MEDICARE, OTHER ==
[~2020-06-22] VITALS: Ht 160 cm; Wt 78.0 kg
[2020-06-22] MEDS ORDERED: GLUCOSAMINE H1500 MG PO (16:05)
[2020-06-22] MEDS ORDERED: MAGNESIUM (16:06)
[2020-06-22] MEDS ORDERED: CHONDROITIN (16:06)
[2020-06-22] MEDS ORDERED: TURMERIC500 M2 PO (16:07)
[2020-06-22] MEDS ORDERED: ECHINACEA500 MG PO (16:07)
[2020-06-22] MEDS ORDERED: VITAMINC500 PO (16:07)
[2020-06-22] MEDS ORDERED: ZINC (16:07)
[2020-06-22] MEDS ORDERED: PAROXETINE CR12.5 MG PO (16:08)
[2020-06-22] MEDS ORDERED: ASA81BEC PO (16:08)
[2020-06-22] MEDS ORDERED: VITAMIN B-121000 MC2 SUBLING (16:08)
[2020-06-22] MEDS ORDERED: LOPRESSOR50 MG PO (16:09)
[2020-06-22 16:26] LABS: ABSOLUTE BASOPHILS 0.1 thou/uL (0.0-0.2); ABSOLUTE EOSINOPHILS 0.2 thou/uL (0.0-0.7); ABSOLUTE LYMPHOCYTES 1.8 thou/uL (0.8-5.3); ABSOLUTE MONOCYTES 0.6 thou/uL (0.0-1.2); ABSOLUTE NEUTROPHILS 4.4 thou/uL (1.6-8.1); BASOPHILS 0.8 %; EOSINOPHILS 2.7 %; HEMATOCRIT 43.3 % (37.0-47.0); HEMOGLOBIN 15.4 gm/dL (12.0-15.0); LYMPHOCYTES 25.6 %; MCH 34.3 pg (26.0-34.0); MCHC 35.5 g/dL (28.0-37.0); MCV 96.5 fL (80.0-100.0); MONOCYTES 8.4 %; NUCLEATED RBCS 0 /100WBC; PLATELET COUNT* 172 thou/uL (150-400); POLYS 62.5 %; RBC 4.49 mil/uL (4.20-5.00); RDW-CV 13.3 % (10.5-14.5); WBC 7.1 thou/uL (4.0-11.0)
[2020-06-22 16:28] LABS: URINE BILIRUBIN NEGATIVE (Negative); URINE BLOOD 3+ (Negative); URINE CLARITY CLOUDY; URINE COLOR YELLOW; URINE GLUCOSE-RANDOM NEGATIVE (Negative); URINE KETONES NEGATIVE (Negative); URINE LEUKOCYTES-REFLEX 1+ (Negative); URINE NITRITE-REFLEX NEGATIVE (Negative); URINE PROTEIN 1+ (Negative); URINE SPECIFIC GRAVITY >= 1.030 (1.005-1.030); URINE UROBILINOGEN 0.2 E.U./dl (0.2-1.0)
[2020-06-22 16:29] LABS: SQUAMOUS 4-10 Moderate /LPF (0-3)
[2020-06-22 16:30] LABS: BACTERIA-REFLEX None Seen /HPF (None Seen); CALCIUM OXALATE 0-3 Few /LPF (None Seen); CASTS None Seen /LPF (None Seen); URINE RBC 3-10 Few /HPF (0-2); URINE WBC-REFLEX 6-15 Few /HPF (0-5)
[2020-06-22 16:43] LABS: ALBUMIN 4.1 g/dL (3.4-5.0); CALCIUM 9.5 mg/dL (8.5-10.1); CREATININE 1.1 mg/dL (0.6-1.3); POTASSIUM 3.8 mmol/L (3.5-5.1); TOTAL BILIRUBIN 0.9 mg/dL (<0.1-1.0); TOTAL PROTEIN 7.1 g/dL (6.4-8.2)
[2020-06-22] MEDS ORDERED: ZOFRAN ODT4 MG SUBLING (17:37)
[2020-06-22] MEDS ORDERED: NORCO 5-325 TA1 EAC2 PO (17:37)
[2020-06-22] MEDS ORDERED: FLOMAX0.4 MG PO (17:37)
[2020-06-22] MEDS ORDERED: CIPROFLOXACIN500 M1 PO (17:37)
[2020-06-22 17:50] VITALS: BP 158/77
--- NOTE | 2020-06-23 14:20 | EKG ---
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1935 Requested By: Alan Garcia Order Number: [id number] MD: Yovany Cullen Measurements Intervals [place] Rate: 59 P: 37 MI: 192 QRS: -30 QRSD: 112 T: 142 QT: 490 QTc: 486 Interpretive Statements Sinus rhythm Low voltage, precordial leads LVH with IVCD and secondary repol abnrm Borderline prolonged QT interval Compared to ECG 10/05/2019 11:51:33 Low QRS voltage now present Intraventricular conduction delay now present Left ventricular hypertrophy now present Early repolarization now present Myocardial infarct finding no longer present ST (T wave) deviation no longer present Electronically Signed On 06-23-2020 14:20:32 CDT by Yovany Cullen [email or web address] <ELECTRONICALLY SIGNED> By: Yovany Cullen MD, [facility] 06/23/20 1420 51 51 Yovany Cullen MD, [facility] /EPI
== END 2020-06-22 17:56 | disposition home or self-care (01) ==
LOC: M.ERS 15:40
PROVIDERS: Family Medicine
DX: N20.0 Calculus of kidney (principal); I10 Essential (primary) hypertension; G89.29 Other chronic pain; Z87.442 Personal history of urinary calculi; Z96.649 Presence of unspecified artificial hip joint; Z96.659 Presence of unspecified artificial knee joint

== ENCOUNTER → 2020-09-04 | Outpatient (CLI) | payer MEDICARE, OTHER ==
[~2020-09-04] MED LIST changes: +ASA81BEC PO; +CHONDROITIN; +CIPROFLOXACIN500 M1 PO; +ECHINACEA500 MG PO; +GLUCOSAMINE H1500 MG PO; +LOPRESSOR50 MG PO; +MAGNESIUM; +NORCO 5-325 TA1 EAC2 PO; +PAROXETINE CR12.5 MG PO; +TURMERIC500 M2 PO; +VITAMIN B-121000 MC2 SUBLING; +ZINC; +ZOFRAN ODT4 MG SUBLING
== END ==
LOC: M.ULTRA 07:47
PROVIDERS: ATTEND Internal Medicine Gastroenterology
DX: K80.80 Other cholelithiasis without obstruction (principal); K76.0 Fatty (change of) liver, not elsewhere classified

== ENCOUNTER 2020-10-02 16:47 | Observation (INO) | payer MEDICARE, OTHER ==
[~2020-10-02] VITALS: Ht 160 cm; Wt 81.6 kg
[2020-10-02 16:57] VITALS: BP 182/78
[2020-10-02] MEDS ORDERED: TOPROL XL25 MG PO (17:03)
[2020-10-02] MEDS ORDERED: CELEBREX 200 M200 MG PO (17:04)
[2020-10-02] MEDS ORDERED: PAROXETINE HCL10 MG PO (17:04)
[2020-10-02] MEDS ORDERED: OXYBUTYNIN 5 MG5 M2 PO (17:04)
[2020-10-02] MEDS ORDERED: VITAMIN D325 MC3 PO (17:05)
[2020-10-02] MEDS ORDERED: ECHINACEA400 MG PO (17:05)
[2020-10-02] MEDS ORDERED: LOSARTAN POTASS50 MG PO (17:05)
[2020-10-02] MEDS ORDERED: ZINC50 M2 PO (17:06)
[2020-10-02] MEDS ORDERED: VITAMIN C1000 MG PO (17:06)
[2020-10-02] MEDS ORDERED: B COMPLEX1 EACH PO (17:06)
[2020-10-02] MEDS ORDERED: MAGNESIUM500 MG PO (17:06)
[2020-10-02] MEDS ORDERED: TURMERIC500 M2 PO (17:07)
[2020-10-02] MEDS ORDERED: VITAMIN E1000 UNIT PO (17:07)
[2020-10-02] MEDS ORDERED: SUPER BEET PO (17:08)
[2020-10-02] MEDS ORDERED: COCONUT OIL1000 MG PO (17:08)
[2020-10-02] MEDS ORDERED: HERBAL LAXATIVE (17:08)
[2020-10-02] MEDS ORDERED: GARLIC500 MG PO (17:08)
[2020-10-02] MEDS ORDERED: TIMOLOL MALEATE5 ML OPHTHALMIC (17:09)
[2020-10-02 17:15] LABS: ABSOLUTE EOSINOPHILS 0.1 thou/uL (0.0-0.7); ABSOLUTE LYMPHOCYTES 1.1 thou/uL (0.8-5.3); ABSOLUTE MONOCYTES 0.5 thou/uL (0.0-1.2); ABSOLUTE NEUTROPHILS 7.2 thou/uL (1.6-8.1); BASOPHILS 0.5 %; EOSINOPHILS 0.6 %; HEMATOCRIT 46.5 % (37.0-47.0); HEMOGLOBIN 16.3 gm/dL (12.0-15.0); LYMPHOCYTES 12.5 %; MCH 34.1 pg (26.0-34.0); MCV 97.3 fL (80.0-100.0); MONOCYTES 5.7 %; MPV 9.1 fl. (7.2-11.1); NUCLEATED RBCS 0 /100WBC; PLATELET COUNT* 206 thou/uL (150-400); POLYS 80.7 %; RBC 4.78 mil/uL (4.20-5.00); WBC 8.9 thou/uL (4.0-11.0)
[2020-10-02 17:19] LABS: CALCIUM 9.9 mg/dL (8.5-10.1); POTASSIUM 4.4 mmol/L (3.5-5.1)
[2020-10-02 17:24] LABS: ALBUMIN 4.1 g/dL (3.4-5.0); TOTAL BILIRUBIN 0.8 mg/dL (<0.1-1.0); TOTAL PROTEIN 7.5 g/dL (6.4-8.2)
[2020-10-02 23:15] VITALS: BP 127/74
[2020-10-03] VITALS: BP 159/96
[2020-10-03 08:09] VITALS: BP 134/79
[2020-10-03] MEDS ORDERED: MIRALAX17 GM PO (09:23)
[2020-10-03] MEDS ORDERED: SENNA-TIME S T1 EACH PO (09:23)
[2020-10-03 12:02] VITALS: BP 134/79
[2020-10-03 13:05] VITALS: BP 134/79
== END 2020-10-03 13:04 | disposition home or self-care (01) ==
LOC: M.ERS 16:47 → M.TBA-ER 20:53 → M.2W 23:36
PROVIDERS: Physician Assistant; ADMIT Internal Medicine; ATTEND Internal Medicine
DX: K56.41 Fecal impaction (principal); R10.9 Unspecified abdominal pain; K75.81 Nonalcoholic steatohepatitis (NASH); K80.20 Calculus of gallbladder without cholecystitis without obstruction; I25.10 Atherosclerotic heart disease of native coronary artery without angina pectoris; I10 Essential (primary) hypertension; K59.00 Constipation, unspecified; E66.9 Obesity, unspecified; G89.29 Other chronic pain; Z68.31 Body mass index [BMI] 31.0-31.9, adult; Z79.899 Other long term (current) drug therapy

== ENCOUNTER → 2020-12-09 | Outpatient (CLI) | payer MEDICARE, OTHER ==
[~2020-12-09] MED LIST changes: +B COMPLEX1 EACH PO; +CELEBREX 200 M200 MG PO; +COCONUT OIL1000 MG PO; +ECHINACEA400 MG PO; +GARLIC500 MG PO; +HERBAL LAXATIVE; +LOSARTAN POTASS50 MG PO; +MAGNESIUM500 MG PO; +PAROXETINE HCL10 MG PO; +SENNA-TIME S T1 EACH PO; +SUPER BEET PO; +TIMOLOL MALEATE5 ML OPHTHALMIC; +VITAMIN C1000 MG PO; +VITAMIN D325 MC3 PO; +VITAMIN E1000 UNIT PO; +ZINC50 M2 PO
== END ==
LOC: M.RAD 12-08 11:34
PROVIDERS: ATTEND Internal Medicine
DX: Z12.31 Encounter for screening mammogram for malignant neoplasm of breast (principal); Z78.0 Asymptomatic menopausal state; M81.0 Age-related osteoporosis without current pathological fracture

== ENCOUNTER 2021-01-10 13:41 | Emergency (ER) | payer MEDICARE, OTHER ==
[~2021-01-10] VITALS: Ht 160 cm; Wt 78.5 kg
[2021-01-10 15:11] VITALS: BP 134/72
== END 2021-01-10 15:12 | disposition home or self-care (01) ==
LOC: M.ERS 13:41
DX: S52.592A Other fractures of lower end of left radius, initial encounter for closed fracture (principal); S52.615A Nondisplaced fracture of left ulna styloid process, initial encounter for closed fracture; I10 Essential (primary) hypertension; Z95.1 Presence of aortocoronary bypass graft; Z87.442 Personal history of urinary calculi; Z96.659 Presence of unspecified artificial knee joint; Z96.649 Presence of unspecified artificial hip joint; W18.39XA Other fall on same level, initial encounter; Y93.89 Activity, other specified; Y92.89 Other specified places as the place of occurrence of the external cause; Y99.8 Other external cause status

== ENCOUNTER → 2021-02-13 | Outpatient (CLI) | payer MEDICARE, OTHER | LOC: M.ULTRA 02-10 09:30 | PROVIDERS: ATTEND Internal Medicine | DX: R16.0 Hepatomegaly, not elsewhere classified (principal); K76.0 Fatty (change of) liver, not elsewhere classified; K80.20 Calculus of gallbladder without cholecystitis without obstruction; R79.89 Other specified abnormal findings of blood chemistry; Z88.5 Allergy status to narcotic agent; Z88.1 Allergy status to other antibiotic agents ==

== ENCOUNTER 2021-03-31 18:58 | Emergency (ER) | payer MEDICARE, OTHER ==
[~2021-03-31] VITALS: Ht 162.6 cm; Wt 80.7 kg
[2021-03-31 19:41] LABS: ABSOLUTE EOSINOPHILS 0.2 thou/uL (0.0-0.7); ABSOLUTE LYMPHOCYTES 2.2 thou/uL (0.8-5.3); ABSOLUTE MONOCYTES 0.5 thou/uL (0.0-1.2); ABSOLUTE NEUTROPHILS 3.4 thou/uL (1.6-8.1); BASOPHILS 0.6 %; EOSINOPHILS 2.8 %; HEMATOCRIT 41.6 % (37.0-47.0); HEMOGLOBIN 14.6 gm/dL (12.0-15.0); LYMPHOCYTES 34.8 %; MCH 34.6 pg (26.0-34.0); MCHC 35.1 g/dL (28.0-37.0); MCV 98.4 fL (80.0-100.0); MONOCYTES 8.5 %; MPV 9.1 fl. (7.2-11.1); NUCLEATED RBCS 0 /100WBC; PLATELET COUNT* 167 thou/uL (150-400); POLYS 53.3 %; RBC 4.23 mil/uL (4.20-5.00); RDW-CV 13.1 % (10.5-14.5); WBC 6.4 thou/uL (4.0-11.0)
[2021-03-31 19:54] LABS: CALCIUM 9.6 mg/dL (8.5-10.1); CREATININE 0.8 mg/dL (0.6-1.3)
[2021-03-31 20:04] LABS: ALBUMIN 3.6 g/dL (3.4-5.0); MAGNESIUM 2.3 mg/dL (1.8-2.4); TOTAL BILIRUBIN 0.4 mg/dL (<0.1-1.0); TOTAL PROTEIN 6.8 g/dL (6.4-8.2)
[2021-03-31 20:22] LABS: URINE BILIRUBIN NEGATIVE (Negative); URINE BLOOD TRACE (Negative); URINE CLARITY CLEAR; URINE COLOR YELLOW; URINE GLUCOSE-RANDOM NEGATIVE (Negative); URINE KETONES NEGATIVE (Negative); URINE LEUKOCYTES-REFLEX TRACE (Negative); URINE NITRITE-REFLEX NEGATIVE (Negative); URINE PROTEIN NEGATIVE (Negative); URINE UROBILINOGEN 0.2 E.U./dl (0.2-1.0)
[2021-03-31 20:32] LABS: BACTERIA-REFLEX 1-9 Few /HPF (None Seen); CASTS None Seen /LPF (None Seen); SQUAMOUS 4-10 Moderate /LPF (0-3); URINE RBC 3-10 Few /HPF (0-2); URINE WBC-REFLEX 0-5 Rare /HPF (0-5)
[2021-03-31 20:33] LABS: CRYSTALS None Seen /LPF (None Seen)
[2021-03-31 22:28] VITALS: BP 153/86
--- NOTE | 2021-04-01 09:23 | EKG ---
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1935 Requested By: Libra Blakely Order Number: [id number] MD: Darren Moore Measurements Intervals [place] Rate: 66 P: 35 MN: 191 QRS: -36 QRSD: 88 T: 32 QT: 521 QTc: 546 Interpretive Statements Sinus rhythm LVH with secondary repolarization abnormality late transition Prolonged QT interval Baseline wander in lead(s) I,III,aVR,aVL,aVF,V6 Compared to ECG 06/22/2020 16:52:27 no change Electronically Signed On 04-01-2021 9:23:37 CDT by Darren Moore [email or web address] <ELECTRONICALLY SIGNED> By: Darren Moore MD, FAC 04/01/21 0923 1904 1904 Darren Moore MD, [facility] /EPI
== END 2021-03-31 22:29 | disposition home or self-care (01) ==
LOC: M.ERS 18:58
PROVIDERS: Emergency Medicine
DX: R07.89 Other chest pain (principal); I10 Essential (primary) hypertension; G89.29 Other chronic pain; Z79.899 Other long term (current) drug therapy; Z95.1 Presence of aortocoronary bypass graft

== ENCOUNTER → 2021-06-15 | Outpatient (CLI) | payer MEDICARE, OTHER ==
[2021-06-15 10:02] LABS: ABSOLUTE EOSINOPHILS 0.1 thou/uL (0.0-0.7); ABSOLUTE LYMPHOCYTES 1.4 thou/uL (0.8-5.3); ABSOLUTE MONOCYTES 0.3 thou/uL (0.0-1.2); ABSOLUTE NEUTROPHILS 2.7 thou/uL (1.6-8.1); BASOPHILS 0.8 %; EOSINOPHILS 2.4 %; HEMATOCRIT 42.3 % (37.0-47.0); LYMPHOCYTES 30.8 %; MCHC 35.4 g/dL (28.0-37.0); MCV 98.8 fL (80.0-100.0); MONOCYTES 6.9 %; MPV 8.9 fl. (7.2-11.1); NUCLEATED RBCS 0 /100WBC; PLATELET COUNT* 182 thou/uL (150-400); POLYS 59.1 %; RBC 4.28 mil/uL (4.20-5.00); WBC 4.6 thou/uL (4.0-11.0)
[2021-06-15 10:21] LABS: ALBUMIN 4.1 g/dL (3.4-5.0); CALCIUM 9.8 mg/dL (8.5-10.1); CREATININE 0.9 mg/dL (0.6-1.3); POTASSIUM 4.1 mmol/L (3.5-5.1); TOTAL PROTEIN 7.3 g/dL (6.4-8.2)
== END ==
LOC: M.LAB 09:36 → M.CT 11:00
PROVIDERS: ATTEND Internal Medicine Gastroenterology
DX: K76.0 Fatty (change of) liver, not elsewhere classified (principal); K86.2 Cyst of pancreas; K80.20 Calculus of gallbladder without cholecystitis without obstruction; N28.1 Cyst of kidney, acquired; J98.11 Atelectasis; N20.0 Calculus of kidney; Z96.641 Presence of right artificial hip joint

== ENCOUNTER → 2021-06-19 | Outpatient (CLI) | payer MEDICARE, OTHER ==
[2021-06-19 11:14] LABS: ALBUMIN 4.1 g/dL (3.4-5.0); CALCIUM 9.5 mg/dL (8.5-10.1); CREATININE 0.9 mg/dL (0.6-1.3); PHOSPHORUS* 3.1 mg/dL (2.5-4.9); POTASSIUM 4.3 mmol/L (3.5-5.1); TOTAL BILIRUBIN 0.6 mg/dL (<0.1-1.0); TOTAL PROTEIN 7.2 g/dL (6.4-8.2)
[2021-06-19 11:29] LABS: CALCIUM 9.6 mg/dL (8.5-10.1); CREATININE 0.9 mg/dL (0.6-1.3); PHOSPHORUS* 3.2 mg/dL (2.5-4.9)
== END ==
LOC: M.LAB 10:17
PROVIDERS: ATTEND Physician Assistant
DX: M81.0 Age-related osteoporosis without current pathological fracture (principal)